=== PATIENT | male | born 1960 | race Caucasian/White ===

== ENCOUNTER → 2016-12-27 | Outpatient (CLI) | payer MEDICARE ==
[2016-12-27 08:59] LABS: ALT 42 U/L (21-72); AST 22 U/L (17-59); Cholesterol 170 mg/dL (<200); HDL Cholesterol 68 mg/dL (40-60)
== END | disposition home or self-care (01) ==
LOC: LABWHC1 07:29
PROVIDERS: ATTEND Nurse Practitioner Adult Health
DX: E78.2 Mixed hyperlipidemia (principal)
CPT/HCPCS: 36415; 80061; 84450; 84460

== ENCOUNTER 2017-02-04 10:11 | Day surgery (SDC) | payer MEDICARE ==
[2017-01-29 16:50] VITALS: BMI 30.3
[~2017-02-04 10:11] MED LIST: ceFAZolin 1,000 MG in SODIUM CHLORIDE 0.9% IRRIGATIO 250 ML IRRIGATION ONE; ceFAZolin 2 GM in SODIUM CHLORIDE 0.9% 100 ML IVPB ONE
[2017-02-04] MEDS: SODIUM CHLORIDE 0.9% 1,000 ML IV SCH ×2 (10:34→13:55)
[2017-02-04 10:39] VITALS: RESP 18
[2017-02-04 10:54] LABS: Basophils % (A) 1 %; CH 33.4; CHCM 34.6; Eosinophils # (A) 0.1 k/uL (0-0.7); Eosinophils % (A) 1 %; HCT 45.5 % (39.0-53.0); HDW 2.57; HGB 15.5 gm/dL (13.0-17.5); Luc # (Auto) 0.09; Luc % (Auto) 1; Lymphocytes # (A) 1.4 k/uL (1.0-4.8); Lymphocytes % (A) 17 %; MCH 33.1 pg (25.0-35.0); MCHC 34.2 g/dL (31.0-37.0); MCV 96.7 fL (80.0-100.0); Mean Platelet Volume 6.3; Monocytes # (A) 0.4 k/uL (0-1.0); Monocytes % (A) 5 %; Neutrophils # (A) 6.2 k/uL (1.3-7.7); Neutrophils % (A) 76 %; RDW 12.9 % (11.5-15.5); WBC 8.2 k/uL (3.8-10.6); WBC (Perox) 8.04
[2017-02-04 11:02] LABS: Anion Gap 14 mmol/L; Blood Urea Nitrogen 12 mg/dL (9-20); Calcium 10.2 mg/dL (8.4-10.2); Carbon Dioxide 16 mmol/L (22-30); Chloride 109 mmol/L (98-107); Glucose 114 mg/dL (74-99); Non-African American GFR(MDRD) >60 (>60 ml/min/1.73 sqM); Potassium 3.9 mmol/L (3.5-5.1); Sodium 139 mmol/L (137-145)
[2017-02-04] MEDS ORDERED: PROPOFOL 10 MG/ML 20 ML VIAL IV ONE (11:48)
[2017-02-04] MEDS ORDERED: MIDAZOLAM 2 MG/2 ML VIAL ONE (11:48)
[2017-02-04] MEDS ORDERED: fentaNYL (PF) 50 MCG/ML 2 ML AMP ONE (11:48)
[2017-02-04] MEDS ORDERED: IODIXANOL 270 MG/ML 50 ML ML IV ONE (12:03)
[2017-02-04] MEDS ORDERED: LIDOCAINE 1% INJ 10MG/ML (20 ML MDV) SQ ONE (12:32)
[2017-02-04] MEDS ORDERED: ACETAMINOPHEN TAB 325 MG TAB PO PRN (13:19)
--- NOTE | 2017-02-04 13:36 | P.PCN ---
Date of Procedure: 02/04/17 Preoperative Diagnosis: Ischemic cardiomyopathy Postoperative Diagnosis: Ischemic Cardiomyopathy with an ejection fraction of 30% Procedure(s) Performed: Single-chamber dual coil AICD implantation Description of Procedure: HISTORY: This is a 56-year-old gentleman with history of previous inferior and also anterior wall myocardial infarction. . The patient echo cardiogram showed an ejection fraction of 30% and nuclear stress test also showed an ejection fraction 30%. Patient is advised to have prophylactic primary prevention ACD. CONSENT:I have discussed the risks, benefits and alternative therapies for the above-mentioned procedure and for both sedation/analgesia as well as necessary blood product administration, if indicated, as they pertain to this patient. The patient has indicated understanding and acceptance of the risks and procedures discussed. PROCEDURE: Patient was brought to the lab in a fasting state. Patient was prepped and draped in the usual fashion. Patient was given IV sedation by department of anesthesia. Axillary venography was performed to delineate the course of the vein. The skin below the right clavicle was infiltrated with lidocaine. A single stick was performed into the axillary portion of the subclavian vein. A guidewire was advanced into the superior vena cava. An incision was made parallel to deltopectoral groove and was deepened until the pectoral fascia was exposed. A pocket was created by blunt dissection and cautery. 8-[place] sheath was advanced over the guidewire and left in the subclavian vein. The ventricular lead was then advanced under fluoroscopy into the superior vena cava. Duration [44 minutes] LEAD: VENTRICULAR: This is manufactured by [employer]. Model number is [id number]. Serial number is [id number]. The ventricular lead is maneuvered l with help of a straight and curved stylets into the left ventricle apical region. Satisfactory position was obtained and threshold measurements were made. THRESHOLDS: VENTRICLE: The minimal patient threshold was 0.6 V at pulse width of 0.5 ms. Impedance was 500 ohms. The R waves were 10 mV. The shock impedance was 50 ohms The lead and pulse generator remained in the pocket after it was washed with antibiotics. Pocket was closed in the usual fashion. The fascia was closed with 2-0 Prolene ,the subcutaneous tissue was closed with 3-0 Prolene and the skin was closed with 4-0 Prolene. DFT TESTING: Patient was given deep anesthesia by department of anesthesia. VF was induced with T shock. This was appropriately detected without any dropouts. A single shock of 21 J converted patient back to sinus rhythm. Patient tolerated the procedure well PROGRAMMING: BRADYCARDIA PROGRAMMING: MODE: VVI RATE: 40 OUTPUT: Ventricle: 3.5 V at pulse width of 0.5 ms TACHYCARDIA PROGRAMMING: VF ZONE: The rate is programmed to 205 beats per minutes. Therapies programmed to 31 J 1 followed by 41 J 7 . VT ZONE: The rate is programmed to 1 75 bpm. Therapies are programmed to 21 J 1, 31 J 1, 41 J 4 new FINAL IMPRESSIO#1. AXILLARY VENOGRAPHY #2. SINGLE-CHAMBER DUAL COIL AICD IMPLANTATION COMPLICATION : None PLAN: Patient will be monitored on the telemetry unit. Chest x-ray left in the morning. If stable patient be discharged home in the morning
[2017-02-04] MEDS ORDERED: LACTATED RINGERS 1,000 ML IV SCH (13:54)
[2017-02-04] MEDS ORDERED: SODIUM CHLORIDE 0.9% 1,000 ML IV SCH (13:54)
[2017-02-04 14:36] LABS: Basophils % (A) 1 %; CH 34.2; CHCM 35.2; Eosinophils % (A) 1 %; HCT 44.8 % (39.0-53.0); HDW 2.48; HGB 15.1 gm/dL (13.0-17.5); Luc % (Auto) 1; Lymphocytes # (A) 1.7 k/uL (1.0-4.8); Lymphocytes % (A) 23 %; MCH 32.8 pg (25.0-35.0); MCHC 33.6 g/dL (31.0-37.0); MCV 97.6 fL (80.0-100.0); Mean Platelet Volume 6.6; Monocytes # (A) 0.4 k/uL (0-1.0); Monocytes % (A) 6 %; Neutrophils # (A) 5.3 k/uL (1.3-7.7); Neutrophils % (A) 69 %; RBC 4.58 m/uL (4.30-5.90); RDW 13.7 % (11.5-15.5); WBC 7.7 k/uL (3.8-10.6)
[2017-02-04] MEDS: ceFAZolin 2 GM in SODIUM CHLORIDE 0.9% 100 ML IVPB SCH ×2 (17:16→23:25)
[2017-02-04] MEDS: HYDROcodone/APAP 5-325MG 1 EACH TAB PO PRN ×2 (17:21→21:31)
[2017-02-04] MEDS: CARVEDILOL 3.125 MG TAB PO SCH (17:23)
[2017-02-04] MEDS ORDERED: ATORVASTATIN 80 MG TAB PO SCH (21:00)
[2017-02-05] MEDS: ceFAZolin 2 GM in SODIUM CHLORIDE 0.9% 100 ML IVPB SCH ×2 (05:48→11:57)
[2017-02-05] MEDS: SODIUM CHLORIDE 0.9% 1,000 ML IV SCH (05:53)
--- NOTE | 2017-02-05 07:24 | XR ---
EXAMINATION TYPE: XR chest 2V DATE OF EXAM: 02/05/2017 COMPARISON: 06/06/2012 HISTORY: 56-year-old male being placement check TECHNIQUE: Frontal and lateral views FINDINGS: Right anterior chest wall AICD generator with right ventricular lead. Heart is upper limits of normal in size. Aorta and pulmonary vasculature within normal limits. No consolidation, pneumothorax, or pl eural effusion seen. IMPRESSION: Right-sided AICD generator with single right ventricular lead. No acute process seen.
[2017-02-05] MEDS: HYDROcodone/APAP 5-325MG 1 EACH TAB PO PRN ×2 (07:28→11:24)
[2017-02-05] MEDS: CARVEDILOL 3.125 MG TAB PO SCH (08:07)
[2017-02-05] MEDS ORDERED: LISINOPRIL 10 MG TAB PO SCH (09:00)
[2017-02-05] MEDS ORDERED: ASPIRIN 325 MG TAB PO SCH (09:00)
[2017-02-05] MEDS ORDERED: SPIRONOLACTONE 25 MG TAB PO SCH (09:00)
--- NOTE | 2017-02-05 09:05 | P.DS ---
Providers Date of admission: January Attending physician: Florentin Mccarty Primary care physician: Hi Salmon - Discharge Diagnosis(es) (1) Chronic CHF Current Visit: Yes Status: Acute (2) Ischemic cardiomyopathy Current Visit: Yes Status: Acute (3) Ischemic heart disease Current Visit: Yes Status: Acute Hospital Course: This patient was brought in for elective AICD implantation. Patient has history of previous ME 2 and ischemic cardiomyopathy with an ejection fraction of 30%. Patient is advised to have prophylactic AICD implantation. Procedure was performed on the right side as patient is left-handed. Patient had a dual coil single-chamber AICD without incident. Patient has tolerated the procedure well. Patient remained stable. Complaints of mild soreness at the site of incision. The dressing looks dry except to spots. A chest x-ray did not reveal any pneumothorax. Device interrogation showed stable findings. Patient is being discharged home today. Patient will continue current medical therapy except resume Plavix from tomorrow. He is also given prophylactic antibiotics and also pain medication. He is given usual instructions and instructed to keep the area dry and not to do any heavy lifting, pushing or pulling at the left arm. Follow-up in the office in one week. Patient to report was if he develops any swelling, redness, fever or chills. Plan - Discharge Summary New Discharge Prescriptions: New HYDROcodone/APAP 5-325MG [[place] 5-325] 1 each PO Q4HR PRN #10 tab PRN Reason: Moderate Pain Cephalexin [Keflex] 500 mg PO Q8HR #10 cap Continue Spironolactone [Aldactone] 25 mg PO DAILY Lisinopril [Zestril] 10 mg PO DAILY Carvedilol [Coreg] 3.125 mg PO BID Atorvastatin [Lipitor] 80 mg PO HS Aspirin 325 mg PO DAILY Clopidogrel Bisulfate [Clopidogrel] 75 mg PO DAILY Discharge Medication List Aspirin 325 mg PO DAILY 06/24/14 [History] Atorvastatin [Lipitor] 80 mg PO HS 06/24/14 [History] Carvedilol [Coreg] 3.125 mg PO BID 06/24/14 [History] Lisinopril [Zestril] 10 mg PO DAILY 06/24/14 [History] Spironolactone [Aldactone] 25 mg PO DAILY 06/24/14 [History] Clopidogrel Bisulfate [Clopidogrel] 75 mg PO DAILY 02/11/16 [History] Cephalexin [Keflex] 500 mg PO Q8HR #10 cap 02/05/17 [Rx] HYDROcodone/APAP 5-325MG [[place] 5-325] 1 each PO Q4HR PRN #10 tab 02/05/17 [Rx] Follow up Appointment(s)/Referral(s): Florentin Mccarty MD [STAFF PHYSICIAN] - 1 Week
[2017-02-05 12:10] VITALS: BP 97/67; PULSE 60; TEMP 98
== END 2017-02-05 13:36 | disposition home or self-care (01) ==
LOC: CATHEP 10:11 → 3OBS 13:14 → CATHEP 02-05 13:36
PROVIDERS: ATTEND Internal Medicine Cardiovascular Disease
DX: I25.5 Ischemic cardiomyopathy (principal); Z00.6 Encounter for examination for normal comparison and control in clinical research program; I25.10 Atherosclerotic heart disease of native coronary artery without angina pectoris; I11.0 Hypertensive heart disease with heart failure; I50.9 Heart failure, unspecified; Z87.891 Personal history of nicotine dependence; I25.2 Old myocardial infarction; E78.00 Pure hypercholesterolemia, unspecified; Z95.5 Presence of coronary angioplasty implant and graft; E78.5 Hyperlipidemia, unspecified; Z82.49 Family history of ischemic heart disease and other diseases of the circulatory system; Z79.82 Long term (current) use of aspirin; Z79.899 Other long term (current) drug therapy; Z79.02 Long term (current) use of antithrombotics/antiplatelets
CPT/HCPCS: 93641; 33249; 80048; 85025; 71020; C1895; C1722; J2250; Q9966; J0690 ×3; J2001; J3010; J2704

== ENCOUNTER → 2018-08-12 | Outpatient (CLI) | payer MEDICARE ==
[2018-08-12 09:05] LABS: Basophils # (A) 0.1 k/uL (0-0.2); Basophils % (A) 1 %; Eosinophils # (A) 0.2 k/uL (0-0.7); Eosinophils % (A) 3 %; HCT 42.3 % (39.0-53.0); HGB 14.2 gm/dL (13.0-17.5); Lymphocytes % (A) 34 %; MCH 32.1 pg (25.0-35.0); MCHC 33.4 g/dL (31.0-37.0); MCV 95.9 fL (80.0-100.0); Mean Platelet Volume 6.9; Monocytes # (A) 0.4 k/uL (0-1.0); Monocytes % (A) 7 %; Neutrophils # (A) 3.1 k/uL (1.3-7.7); Neutrophils % (A) 53 %; Platelet Count 276 k/uL (150-450); RBC 4.41 m/uL (4.30-5.90); RDW 13.2 % (11.5-15.5); WBC 5.9 k/uL (3.8-10.6)
[2018-08-12 16:52] LABS: Albumin 4.6 g/dL (3.80-4.90); Albumin/Globulin Ratio 2.3 (1.60-3.17); Anion Gap 7.9 mmol/L (4.00-12.00); Calcium 9.7 mg/dL (8.7-10.3); Carbon Dioxide 24.1 mmol/L (21.6-31.8); LDL Cholesterol,Calculated 63.2 mg/dL (0.0-131.0); Potassium 4.6 mmol/L (3.5-5.5); Total Bilirubin 0.9 mg/dL (0.3-1.2); Total Protein 6.6 g/dL (6.2-8.2); VLDL Calculation 23.8 mg/dL (5.00-40.00)
== END | disposition home or self-care (01) ==
LOC: LABWHC1 08:03
PROVIDERS: ATTEND Internal Medicine Cardiovascular Disease
DX: E78.2 Mixed hyperlipidemia (principal)
CPT/HCPCS: 36415; 80053; 80061; 85025

== ENCOUNTER → 2021-12-03 | Outpatient (CLI) | payer MEDICARE ==
[2021-12-03 18:39] LABS: Anion Gap 14.3 mmol/L (10.00-18.00); Carbon Dioxide 21.5 mmol/L (20.0-27.5); Potassium 4.1 mmol/L (3.5-5.5)
== END | disposition home or self-care (01) ==
LOC: LABWHC1 09:55
PROVIDERS: ATTEND Internal Medicine Interventional Cardiology
DX: Z00.00 Encounter for general adult medical examination without abnormal findings (principal)
CPT/HCPCS: 36415; 80051; 84443; 84450; 84460

== ENCOUNTER → 2023-01-07 | Outpatient (CLI) | payer MEDICARE ==
[2023-01-07 13:44] LABS: ALT 61 U/L (10-49); AST 36 U/L (14-35); BUN/Creat Ratio 15.27 Ratio (12.00-20.00); Blood Urea Nitrogen 16.8 mg/dL (9.0-27.0); Calcium 9.6 mg/dL (8.7-10.3); Carbon Dioxide 25.2 mmol/L (21.6-31.8); Chloride 106 mmol/L (96-109); Chol/HDL Ratio 2.56 Ratio; Glucose 110 mg/dL (70-110); Potassium 4.8 mmol/L (3.5-5.5); Sodium 142 mmol/L (135-145); VLDL Calculation 18.42 mg/dL (5.00-40.00)
== END | disposition home or self-care (01) ==
LOC: LABWHC1 08:41
PROVIDERS: ATTEND Internal Medicine Cardiovascular Disease
DX: I47.29 Other ventricular tachycardia (principal); E78.2 Mixed hyperlipidemia
CPT/HCPCS: 36415; 80048; 80061; 84443; 84450; 84460

== ENCOUNTER → 2023-10-01 | Outpatient (CLI) | payer MEDICARE ==
[2023-10-01 15:38] LABS: ALT 39 U/L (10-49); AST 27 U/L (14-35); Chol/HDL Ratio 2.31 Ratio; VLDL Calculation 15.78 mg/dL (5.00-40.00)
== END | disposition home or self-care (01) ==
LOC: LABWHC1 07:19
PROVIDERS: ATTEND Internal Medicine Cardiovascular Disease
DX: I47.20 Ventricular tachycardia, unspecified (principal); E78.2 Mixed hyperlipidemia
CPT/HCPCS: 36415; 80061; 84443; 84450; 84460

== ENCOUNTER 2024-02-01 08:22 | Emergency (ER) | payer MEDICARE ==
[2024-02-01 08:27] VITALS: RESP 18
--- NOTE | 2024-02-01 09:12 | XR ---
EXAMINATION TYPE: XR knee complete LT DATE OF EXAM: 02/01/2024 COMPARISON: None HISTORY: Worsening chronic knee pain TECHNIQUE: 3 view left knee FINDINGS: No acute fracture or dislocation evident. No joint effusion is evident. Joint spaces are pr eserved. Follow up exams can be performed 7-10 days from acute trauma for continued pain IMPRESSION: 1. No acute osseous abnormality radiographically apparent. MRI can be performed as clinically indica crispin. [facility], , 02/01/2024 9:10 AM
--- NOTE | 2024-02-01 09:16 | ED ---
Extremity Problem HPI - General Chief complaint: Extremity Problem,Nontraumatic Stated complaint: L Knee/Foot Pain Time Seen by Provider: 02/01/24 09:16 Source: patient, RN notes reviewed Mode of arrival: ambulatory Limitations: no limitations - History of Present Illness Initial comments: 63-year-old male presented the ER with a chief complaint of left knee pain. Patient also is complaining of left great toe pain. He states toe started to bother him yesterday. Patient states it is painful to walk. Denies any fevers or chills. No known injuries. Denies any fevers or chills. - Related Data Home Medications Medication Instructions Recorded Confirmed Aspirin 325 mg PO DAILY 06/24/14 02/04/17 Atorvastatin [Lipitor] 80 mg PO HS 06/24/14 02/04/17 Spironolactone [Aldactone] 25 mg PO DAILY 06/24/14 02/04/17 carvediloL [Coreg] 3.125 mg PO BID 06/24/14 02/04/17 lisinopriL [Zestril] 10 mg PO DAILY 06/24/14 02/04/17 Clopidogrel Bisulfate [Clopidogrel] 75 mg PO DAILY 02/11/16 02/04/17 Previous Rx's Medication Instructions Recorded Cephalexin [Keflex] 500 mg PO Q8HR #10 cap 02/05/17 HYDROcodone/APAP 5-325MG [[place] 1 each PO Q4HR PRN #10 tab 02/05/17 5-325] Colchicine 0.6 mg PO ONCE #3 cap 02/01/24 Ibuprofen [Motrin] 600 mg PO Q8HR PRN #30 tab 02/01/24 Allergies Allergy/AdvReac Type Severity Reaction Status Date / Time No Known Allergies Allergy Verified 02/01/24 08:26 Review of Systems ROS Statement: Those systems with pertinent positive or pertinent negative responses have been documented in the HPI. ROS Other: All systems not noted in ROS Statement are negative. Past Medical History Past Medical History: Coronary Artery Disease (CAD), Hypertension, Myocardial Infarction (MS) Additional Past Medical History / Comment(s): see Dr Valentin H & P Last Myocardial Infarction Date:: 2012 History of Any Multi-Drug Resistant Organisms: None Reported Past Surgical History: Heart Catheterization With Stent, Tonsillectomy Additional Past Surgical History / Comment(s): cardiac stent Past Anesthesia/Blood Transfusion Reactions: No Reported Reaction Date of Last Stent Placement:: 2012 Past Psychological History: No Psychological Hx Reported Smoking Status: Never smoker Past Alcohol Use History: Rare Past Drug Use History: None Reported - Past Family History Mother Family Medical History: Cancer Father Family Medical History: Coronary Artery Disease (CAD), Myocardial Infarction (MS) General Exam - General Exam Comments Initial Comments: Visual Physical Exam Vital signs reviewed General: Well-appearing, nontoxic, no acute distress. Head: Normocephalic, atraumatic Eyes: PERRLA, EOMI ENT: Airway patent Chest: Nonlabored breathing Skin: No visual rash, normal skin tone Neuro: Alert and oriented 3 Musculoskeletal: No gross abnormalities Limitations: no limitations Respiratory exam: Present: normal lung sounds bilaterally. Absent: respiratory distress, wheezes, rales, rhonchi, stridor Cardiovascular Exam: Present: regular rate, normal rhythm, normal heart sounds. Absent: systolic murmur, diastolic murmur, rubs, gallop, clicks Extremities exam: Present: normal inspection, full ROM, normal capillary refill, other (Erythema and tenderness to left great IP joint. Is also tenderness and edema to left knee. Patient has full active range of motion. Neurovascularly intact). Absent: tenderness, pedal edema, joint swelling, calf tenderness Neurological exam: Present: alert, oriented X3, CN II-XII intact Skin exam: Present: warm, dry, intact, normal color. Absent: rash Course Vital Signs 02/01/24 02/01/24 02/01/24 08:23 09:55 13:12 Temperature 98.1 F 98 F Pulse Rate 53 L 60 Respiratory 18 18 18 Rate Blood Pressure 121/71 124/74 O2 Sat by Pulse 97 98 Oximetry Medical Decision Making - Medical Decision Making I performed the quick note portion of this chart. Electronically signed by Felipa Rogers PA-C Was pt. sent in by a medical professional or institution (RACHID Jimenez, GUN REPAIR CLERK, urgent care, hospital, or residential...) When possible be specific @ -No Did you speak to anyone other than the patient for history (EMS, parent, family, police, friend...)? What history was obtained from this source @ -No Did you review nursing and triage notes (agree or disagree)? Why? @ -I reviewed and agree with nursing and triage notes Were old charts reviewed (outside hosp., previous admission, EMS record, old EKG, old radiological studies, urgent care reports/EKG's, residential records)? Report findings @ -No old charts were reviewed Differential Diagnosis (chest pain, altered mental status, abdominal pain women, abdominal pain men, vaginal bleeding, weakness, fever, dyspnea, syncope, headache, dizziness, GI bleed, back pain, seizure, CVA, palpatations, mental health, musculoskeletal)? @ -Differential Musculoskeletal: Muscular strain, contusion, ligament sprain, fracture, arthritis, septic arthritis, bursitis, cellulitis, muscle spasm, nerve compression, DVT, arterial occlusion, herpes zoster, electrolyte abnormality, tumor.... This is not meant to be in all inclusive list EKG interpreted by me (3pts min.). @ -None done X-rays interpreted by me (1pt min.). @ -Left toe x-ray showing soft tissue swelling to the distal IP joint. Mild calcification avulsion or degenerative calcification of first digit. Left knee x-ray negative for acute process. CT interpreted by me (1pt min.). @ -None done U/S interpreted by me (1pt. min.). @ -None done What testing was considered but not performed or refused? (CT, X-rays, U/S, labs)? Why? @ -None What meds were considered but not given or refused? Why? @ -None Did you discuss the management of the patient with other professionals (professionals i.e. , PA, GUN REPAIR CLERK, lab, RT, psych nurse, social sciences chair, fish farm manager, teacher, credit administration officer, pillowcase cutter)? Give summary @ -No Was smoking cessation discussed for >3mins.? @ -No Was critical care preformed (if so, how long)? @ -No Were there social determinants of health that impacted care today? How? (Homelessness, low income, unemployed, alcoholism, drug addiction, transportation, low edu. Level, literacy, decrease access to med. care, fci, rehab)? @ -No Was there de-escalation of care discussed even if they declined (Discuss DNR or withdrawal of care, Hospice)? DNR status @ -No What co-morbidities impacted this encounter? (DM, HTN, Smoking, COPD, CAD, Cancer, CVA, ARF, Chemo, Hep., AIDS, mental health diagnosis, sleep apnea, morbid obesity)? @ -None Was patient admitted / discharged? Hospital course, mention meds given and route, prescriptions, significant lab abnormalities, going to OR and other pertinent info. @ -Discharge. 63-year-old male presented to the ER with a chief complaint of left knee and left great toe pain. History and physical exam completed. Patient originally seen as a quick note. Vitals upon my examination within normal limits. Patient in no signs of acute distress and nontoxic-appearing. Exam remarkable for an erythematous edematous left great toe concerning of gout. Left lower extremity neurovascular intact. Laboratory studies obtained at that time. CBC unimpressive. CMP showing sodium 135 and potassium 3.8, chloride 101, carbon dioxide 21. Uric acid 4.1 CRP 12.6. X-rays obtained negative for acute osseous process. Patient received symptomatic control in the ER. Patient will be started on colchicine and ibuprofen for gout. Advise close follow-up with PCP. Strict return parameters discussed. Patient discharged in stable condition. Patient verbally expressed understanding agree with care plan. Case discussed with ED attending, . Undiagnosed new problem with uncertain prognosis? @ -No Drug Therapy requiring intensive monitoring for toxicity (Heparin, Nitro, Insulin, Cardizem)? @ -No Were any procedures done? @ -No Diagnosis/symptom? @ -Gout Acute, or Chronic, or Acute on Chronic? @ -Acute Uncomplicated (without systemic symptoms) or Complicated (systemic symptoms)? @ -Uncomplicated Side effects of treatment? @ -No Exacerbation, Progression, or Severe Exacerbation? @ -No Poses a threat to life or bodily function? How? (Chest pain, USA, MS, pneumonia, PE, COPD, DKA, ARF, appy, cholecystitis, CVA, Diverticulitis, Homicidal, Suicidal, threat to staff... and all critical care pts) @ -No - Lab Data Result diagrams: 02/01/24 09:36 02/01/24 09:36 Lab Results 02/01/24 02/01/24 Range/Units 09:36 09:36 WBC 8.2 (3.8-10.6) k/uL RBC 4.21 L (4.30-5.90) m/uL Hgb 13.7 (13.0-17.5) gm/dL Hct 40.0 (39.0-53.0) % MCV 94.9 (80.0-100.0) fL MCH 32.4 (25.0-35.0) pg MCHC 34.2 (31.0-37.0) g/dL RDW 13.4 (11.5-15.5) % Plt Count 362 (150-450) k/uL MPV 7.6 Neutrophils % 85 % Lymphocytes % 9 % Monocytes % 5 % Eosinophils % 1 % Basophils % 0 % Neutrophils # 7.0 (1.3-7.7) k/uL Lymphocytes # 0.7 L (1.0-4.8) k/uL Monocytes # 0.4 (0-1.0) k/uL Eosinophils # 0.1 (0-0.7) k/uL Basophils # 0.0 (0-0.2) k/uL Sodium 135 L (137-145) mmol/L Potassium 3.8 (3.5-5.1) mmol/L Chloride 108 H (98-107) mmol/L Carbon Dioxide 21 L (22-30) mmol/L Anion Gap 6 mmol/L BUN 17 (9-20) mg/dL Creatinine 0.85 (0.66-1.25) mg/dL Est GFR (CKD-EPI)AfAm >90 (>60 ml/min/1.73 sqM) Est GFR (CKD-EPI)NonAf >90 (>60 ml/min/1.73 sqM) Glucose 153 H (74-99) mg/dL Uric Acid 4.1 (3.5-8.5) mg/dL Calcium 9.2 (8.4-10.2) mg/dL Total Bilirubin 1.0 (0.2-1.3) mg/dL AST 29 (17-59) U/L ALT 36 (4-49) U/L Alkaline Phosphatase 92 (38-126) U/L C-Reactive Protein 12.6 H (<1.0) mg/dL Total Protein 6.2 L (6.3-8.2) g/dL Albumin 3.5 (3.5-5.0) g/dL - Radiology Data Radiology results: report reviewed, image reviewed Disposition Clinical Impression: Gout Disposition: HOME SELF-CARE Condition: Stable Instructions (If sedation given, give patient instructions): Gout (ED) Additional Instructions: You may take otc ibuprofen for pain control. Follow-up with PCP in next 1-2 days. Return to the ER for any new or worsening symptoms. Prescriptions: Colchicine 0.6 mg PO ONCE #3 cap Ibuprofen [Motrin] 600 mg PO Q8HR PRN #30 tab PRN Reason: Pain Is patient prescribed a controlled substance at d/c from ED?: No Referrals: Edith Valentin MD [STAFF PHYSICIAN] - 1-2 days Forms: Area PCPs Time of Disposition: 12:40
[2024-02-01] MEDS: KETOROLAC 15 MG/ML 1 ML VIAL IVP STA (09:56)
[2024-02-01 09:58] LABS: Basophils % (A) 0 %; Eosinophils # (A) 0.1 k/uL (0-0.7); Eosinophils % (A) 1 %; HGB 13.7 gm/dL (13.0-17.5); Lymphocytes # (A) 0.7 k/uL (1.0-4.8); Lymphocytes % (A) 9 %; MCH 32.4 pg (25.0-35.0); MCHC 34.2 g/dL (31.0-37.0); MCV 94.9 fL (80.0-100.0); Mean Platelet Volume 7.6; Monocytes # (A) 0.4 k/uL (0-1.0); Monocytes % (A) 5 %; Neutrophils % (A) 85 %; Platelet Count 362 k/uL (150-450); RBC 4.21 m/uL (4.30-5.90); RDW 13.4 % (11.5-15.5); WBC 8.2 k/uL (3.8-10.6)
[2024-02-01 10:20] LABS: ALT 36 U/L (4-49); AST 29 U/L (17-59); African American GFR (CKD) >90 (>60 ml/min/1.73 sqM); Albumin 3.5 g/dL (3.5-5.0); Alkaline Phosphatase 92 U/L (38-126); Anion Gap 6 mmol/L; Blood Urea Nitrogen 17 mg/dL (9-20); Calcium 9.2 mg/dL (8.4-10.2); Carbon Dioxide 21 mmol/L (22-30); Chloride 108 mmol/L (98-107); Glucose 153 mg/dL (74-99); Non-African American GFR(CKD) >90 (>60 ml/min/1.73 sqM); Potassium 3.8 mmol/L (3.5-5.1); Sodium 135 mmol/L (137-145); Total Protein 6.2 g/dL (6.3-8.2); Uric Acid 4.1 mg/dL (3.5-8.5)
[2024-02-01 10:33] LABS: C Reactive Protein 12.6 mg/dL (<1.0)
--- NOTE | 2024-02-01 12:05 | XR ---
EXAMINATION TYPE: XR toes LT DATE OF EXAM: 02/01/2024 COMPARISON: None HISTORY: Swelling great toe TECHNIQUE: Three-view great toe FINDINGS: No acute fracture or dislocation evident. There is mild prominence over the proximal interp halangeal joint space. There may be some calcification medial to the distal interphalangeal joint space. No sharp cortex mingo nges evident to suggest acute avulsion. This could be old or degenerative. Follow up exams can be per formed 7-10 days from acute trauma for continued pain. IMPRESSION: 1. Soft tissue swelling distal interphalangeal joint space. 2. Mild calcification old avulsion or degenerative calcification most likely. [facility], , 02/01/2024 12:03 PM
[2024-02-01 13:14] VITALS: BP 124/74; PULSE 60; TEMP 98
== END 2024-02-01 13:13 | disposition home or self-care (01) ==
LOC: EC 08:22
DX: M10.9 Gout, unspecified (principal)
CPT/HCPCS: 36415; 80053; 84550; 85025; 86140

== ENCOUNTER → 2024-02-09 | Outpatient (CLI) | payer MEDICARE ==
[2024-02-10 04:58] LABS: Appearance,BF Hazy; Color,BF Yellow; Nucleated Cells, Body Fluid 3140 /uL; Polynuclear WBC,Body Fluid 89 %; RBC, Body Fluid 1730 /uL
[2024-02-10 04:59] LABS: Mononuclear WBC,Body Fluid 11 %
[2024-02-10 12:04] LABS: Synovial Fld Crystals None Seen (None Seen)
== END | disposition home or self-care (01) ==
LOC: LABWHC1 14:51
PROVIDERS: ATTEND Orthopaedic Surgery
DX: M25.561 Pain in right knee (principal); M10.061 Idiopathic gout, right knee; M25.562 Pain in left knee; M10.062 Idiopathic gout, left knee
CPT/HCPCS: 89050; 89060